=== PATIENT | female | born 1980 | race American Indian/Alaskan Native ===

== ENCOUNTER 2018-02-02 18:21 | Emergency (ER) | payer SELFPAY ==
[2018-02-02 19:40] LABS: Basophils % (Auto) 0.3 % (0.0-1.8); Eosinophils % (Auto) 0.2 % (0.0-4.3); Hematocrit 33.8 % (30.3-42.9); Hemoglobin 10.9 gm/dl (10.1-14.3); Lymphocytes # (Auto) 0.5 K/mm3 (1.2-5.4); Lymphocytes % (Auto) 5.2 % (13.4-35.0); Mean Corpuscular HGB Conc 32 % (30-34); Mean Corpuscular Volume 72 fl (79-97); Monocytes # (Auto) 1.2 K/mm3 (0.0-0.8); Platelet Count 156 K/mm3 (140-440); Red Cell Distribution Width 17.7 % (13.2-15.2)
[2018-02-02 19:46] LABS: Mean Corpuscular Hemoglobin 23 pg (28-32)
[2018-02-02 19:59] LABS: Alanine Aminotransferase 31 units/L (7-56); Albumin 3.6 g/dL (3.9-5); BUN/Creatinine Ratio 12; Blood Urea Nitrogen 7 mg/dL (7-17); Calcium 8.7 mg/dL (8.4-10.2); Hemolysis Index 0
[2018-02-02 20:42] LABS: Bacteria,Urine 2+ /HPF (Negative); Bilirubin,Urine NEG (Negative); Blood,Urine LG (Negative); Color,Urine Yellow (Yellow); Mucus,Urine 2+ /HPF; Renal Epithelial Cells,Urine 2 /LPF; Urobilinogen,Urine < 2.0 mg/dL (<2.0)
[2018-02-02 20:45] LABS: WBC,Urine > 182.0 /HPF (0.0-6.0)
[2018-02-02] MEDS ORDERED: NACL 0.9% 1000 ML 1,000 ML IV ONE (21:20)
[2018-02-02] MEDS ORDERED: ROCEPHIN/NS 1 GM/50 ML 1 GM/50 ML BAG IV ONE (21:20)
[2018-02-02] MEDS ORDERED: ZOFRAN IV ONE (21:20)
--- NOTE | 2018-02-02 21:29 | Emergency Department Report ---
HPI - General Chief Complaint: Abdominal Pain Time Seen by Provider: 02/02/18 20:58 - HPI HPI: 37-year-old female presents to the emergency department with complaint of a few days of nausea, vomiting, fever and before that she had some diarrhea. 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 She's been taking some Aleve for her symptoms at any relief. She has been vomiting a lot, including liquids and solids, to the point where she is having some upper abdominal discomfort from all of the vomiting. She does not have a primary care physician. She denies any past medical history. No recent travel. ED Past Medical Hx - Past Medical History Previous Medical History?: No - Surgical History Past Surgical History?: Yes Additional Surgical History: c [id number] cyst removed from ovary - Social History Smoking Status: Never Smoker Substance Use Type: None - Medications Home Medications: Home Medications Medication Instructions Recorded Confirmed Last Taken Type Naproxen Sodium [Aleve TAB] 220 mg PO DAILY PRN 02/02/18 02/02/18 Unknown History Nitrofurantoin Monohyd/M-Cryst 100 mg PO BID #14 capsule 02/02/18 Unknown Rx [Macrobid 100 mg Capsule] Ondansetron [Zofran Odt] 4 mg PO Q8H PRN #10 tab.rapdis 02/02/18 Unknown Rx ED Review of Systems ROS: Stated complaint: fever Other details as noted in HPI Comment: All other systems reviewed and negative Constitutional: chills, fever, weakness Eyes: denies: eye pain, eye discharge, vision change ENT: denies: ear pain, throat pain Respiratory: denies: cough, shortness of breath, wheezing Cardiovascular: denies: chest pain, palpitations Gastrointestinal: abdominal pain, nausea, vomiting, diarrhea Genitourinary: denies: hematuria, discharge Musculoskeletal: denies: back pain, joint swelling, arthralgia Skin: denies: rash, lesions Neurological: denies: headache, weakness, paresthesias Physical Exam - Physical Exam Vital Signs: Vital Signs 02/02/18 19:16 Temperature 98.9 F Pulse Rate 102 H Respiratory 18 Rate Blood Pressure 120/74 O2 Sat by Pulse 99 Oximetry Physical Exam: GENERAL: The patient is well-developed well-nourished. HENT: Normocephalic. Atraumatic. Patient has moist mucous membranes. EYES: Extraocular motions are intact. Pupils equal reactive to light bilaterally. NECK: Supple. Trachea is midline. CHEST/LUNGS: Clear to auscultation. There is no respiratory distress noted. HEART/CARDIOVASCULAR: Regular. There is no tachycardia. There is no murmur. ABDOMEN: Abdomen is soft. Mild epigastric tenderness to palpation. No guarding. Patient has normal bowel sounds. There is no abdominal distention. SKIN: Skin is warm and dry. NEURO: The patient is awake, alert, and oriented. The patient is cooperative. The patient has no focal neurologic deficits. The patient has normal speech. MUSCULOSKELETAL: There is no tenderness or deformity. There is no limitation range of motion. There is no evidence of acute injury. ED Course Vital Signs 02/02/18 19:16 Temperature 98.9 F Pulse Rate 102 H Respiratory 18 Rate Blood Pressure 120/74 O2 Sat by Pulse 99 Oximetry ED Medical Decision Making - Lab Data Result diagrams: 02/02/18 19:24 02/02/18 19:24 - Radiology Data Radiology results: image reviewed interpreted by me: Abdominal x-ray shows nonspecific nonobstructive bowel gas. - Medical Decision Making Patient presents with a few days of nausea and vomiting and some previous diarrhea. She has some epigastric discomfort secondary to the vomiting. Labs here are mostly unremarkable except for a potassium of 3.2 and a urinalysis that shows a urinary tract infection. An IV was placed and the patient was given IV fluid, Zofran and Rocephin. Abdominal x-ray shows nonspecific nonobstructive bowel gas. The patient was reevaluated multiple times during the ED course and says that she is feeling improved. She has been able to pass an oral challenge and keep down some fluid in the potassium chloride supplementation. She appears safe for discharge home at this time. Vital signs stable throughout her ED course including being afebrile. She will be discharged home with a prescription for Zofran, Macrobid and multiple referrals for primary care physicians and clinics. She will return to the ER with any worsening of her symptoms or any acute distress. - Differential Diagnosis viral syndrome, gastritis, food poisoning, UTI, Critical Care Time: No Critical care attestation.: If time is entered above; I have spent that time in minutes in the direct care of this critically ill patient, excluding procedure time. ED Disposition Clinical Impression: Hypokalemia, Dehydration Nausea & vomiting Qualifiers: Vomiting type: unspecified Vomiting Intractability: non-intractable Qualified Code(s): R11.2 - Nausea with vomiting, unspecified UTI (urinary tract infection) Qualifiers: Urinary tract infection type: acute cystitis Hematuria presence: with hematuria Qualified Code(s): N30.01 - Acute cystitis with hematuria Disposition: TO HOME OR SELFCARE Is pt being admited?: No Condition: Stable Instructions: Dehydration (ED), Hypokalemia (ED), Acute Nausea and Vomiting (ED ), Abdominal Pain (ED) Additional Instructions: Please follow up with a primary care physician in the next 2 days if possible. Return to the emergency Department with any worsening of your symptoms or any acute distress. Increase your oral rehydration. Take the antibiotics as prescribed. Prescriptions: Nitrofurantoin Monohyd/M-Cryst [Macrobid 100 mg Capsule] 100 mg PO BID #14 capsule Ondansetron [Zofran Odt] 4 mg PO Q8H PRN #10 tab.rapdis PRN Reason: Nausea Referrals: BRAD RODRIGUEZ MD [Staff Physician] - 3-5 Days [facility] [Outside] - 3-5 Days [facility] [Outside] - 3-5 Days Time of Disposition: 23:17
[2018-02-02] MEDS ORDERED: cefTRIAXone 1 GM in NACL 0.9% 20 ML IV ONE (21:30)
[2018-02-02] MEDS ORDERED: K-DUR PO ONE (21:32)
[2018-02-02 22:42] VITALS: BP 127/68
--- NOTE | 2018-02-02 23:06 | XRay Report ---
FINAL REPORT PROCEDURE: Abdomen. TECHNIQUE: Supine and upright views. HISTORY: Abdominal pain. COMPARISON: No prior studies are available for comparison. FINDINGS: The bowel gas pattern is normal. There are no signs of obstruction. There is no evidence of pneumoperitoneum. The soft tissues are unremarkable. There are fallopian tube clips in the pelvis. The regional skeleton appears intact. IMPRESSION: No evidence of acute abdominal disease.
== END 2018-02-02 23:32 | disposition home or self-care (01) ==
LOC: ED 18:21
DX: E87.6 Hypokalemia (principal); E86.0 Dehydration; R11.2 Nausea with vomiting, unspecified; N30.01 Acute cystitis with hematuria
CPT/HCPCS: 36415; 74019; 80053; 81001; 84703; 85025; 96374; 96375; 99284; J0696; J2405; J7030